=== PATIENT | female | born 1965 | race Caucasian/White ===

== ENCOUNTER 2021-09-20 14:16 | Emergency (ER) | payer OTHER ==
[~2021-09-20] VITALS: Ht 165.1 cm; Wt 49.9 kg
[2021-09-20] MEDS ORDERED: PRED20TA PO (14:51)
[2021-09-20] MEDS ORDERED: predniSONE 20 MG TABLET PO ONE (15:00)
[2021-09-20] MEDS ORDERED: diphenhydrAMINE 50 MG CAPSULE PO ONE (15:00)
[2021-09-20] MEDS ORDERED: predniSONE 20 MG TABLET ONE (15:14)
[2021-09-20] MEDS ORDERED: diphenhydrAMINE 50 MG CAPSULE ONE (15:14)
--- NOTE | 2021-09-20 15:18 | NUR ---
Pt took only took 40mg of prednisone, refused additional 20mg and refused Benadryl Gave pt RX and d/c instructions, pt verbalized understanding. Also gave her Homeless packet, sandwich and juice.
== END 2021-09-20 15:30 | disposition home or self-care (01) ==
LOC: ER 14:16
DX: R21 Rash and other nonspecific skin eruption (principal); Z59.00 Homelessness unspecified; F20.9 Schizophrenia, unspecified
CPT/HCPCS: A4663; J7512; Q0163